=== PATIENT | female | born 1965 | race Caucasian/White ===

== ENCOUNTER → 2019-01-06 | Outpatient (CLI) | payer BC ==
[~2019-01-06] VITALS: Ht 167.6 cm; Wt 118.8 kg
[~2019-01-06] MED LIST: CATHETER FLUSH 10 ML SYR IV PRN; ESTROGEN; NAPR-243 PO; OMEG-160 PO; PHEN37.555; SIMV20TA3 PO; TRM50T PO
[2019-01-06 09:12] VITALS: BP 123/78
[2019-01-06 09:23] VITALS: BP 188/111
--- NOTE | 2019-01-07 08:23 | STRESS TEST ---
DATE OF SERVICE: 01/06/2019 EXERCISE MYOVIEW STRESS TEST REPORT Baseline heart rate is 63. Baseline blood pressure 123/78. Baseline EKG is sinus rhythm with no ischemic changes. In summary, the patient was injected with 10.3 mCi of technetium-99 Myoview and the resting images were obtained. Then, the patient started exercising with a baseline heart rate, blood pressure and EKG mentioned above. The patient was able to exercise for a total of 4 minutes 30 seconds on standard Tima protocol. With peak exercise level, EKG was showing minimal and nondiagnostic changes. Blood pressure was 179/102. During recovery, heart rate and blood pressure returned to baseline. EKG returned to baseline. The resting and stress images were reviewed and compared in the short axis, horizontal long axis, and vertical long axis views. Review of the images showed breast attenuation with mild decrease uptake at the mid to apical anterior wall with mild reversibility. SSS is 5, SDS 5, TID value 1.0. On the gated images, the left ventricle appeared to be in normal size with normal contractility. Calculated ejection fraction 62%. CONCLUSION: 1. Fair exercise tolerance, a total of 4 minutes 30 seconds on standard Tima protocol, total of 6.4 METS, achieving 88% of maximum expected heart rate. 2. Appropriate heart rate with hypertensive response to exercise, returned to baseline during recovery. 3. Nondiagnostic EKG changes with exercise returned to baseline during recovery. 4. Breast attenuation with mild ischemia involving the mid to apical anterior wall. 5. Normal left ventricular size with normal contractility. Calculated ejection fraction 62%. Job ID: [id number] DocumentID: [id number] Dictated Date: 01/07/2019 07:37:33 Development Assistant Date: 01/07/2019 08:22:13 Dictated By: KATHY MADDEN MD
== END ==
LOC: CARD 07:16
PROVIDERS: ATTEND Internal Medicine Cardiovascular Disease
DX: R07.89 Other chest pain (principal); I08.1 Rheumatic disorders of both mitral and tricuspid valves; E66.01 Morbid (severe) obesity due to excess calories; Z68.41 Body mass index [BMI] 40.0-44.9, adult
CPT/HCPCS: 78452; 93017

== ENCOUNTER 2019-01-08 07:46 | Day surgery (SDC) | payer BC ==
[2019-01-08] VITALS (9 sets, daily range): BP systolic 127–167; BP diastolic 75–99
[~2019-01-08] VITALS: Ht 167.6 cm; Wt 117.0 kg
[~2019-01-08 07:46] MED LIST changes: -CATHETER FLUSH 10 ML SYR IV PRN; -OMEG-160 PO; -SIMV20TA3 PO
[2019-01-08] MEDS ORDERED: HEParin (CATH LAB) 2,000 ML IV ONE (07:54)
[2019-01-08] MEDS ORDERED: NS IV 1000 ML 1,000 ML ONE (07:54)
[2019-01-08] MEDS ORDERED: LIDOCAINE 1% INJ 20 ML 20 ML VIAL ONE (07:54)
[2019-01-08] MEDS ORDERED: NS IV 1000 ML 1,000 ML IV SCH ×2 (08:15→12:04)
[2019-01-08] MEDS ORDERED: OMEG-160 PO ×2 (08:23)
[2019-01-08] MEDS ORDERED: SIMV20TA3 PO ×2 (08:23)
[2019-01-08 08:24] LABS: HEMOGLOBIN 11.8 G/DL (11.5-16.0); RED CELL DISTRIBUTION WIDTH 13.8 % (10.0-14.5); WHITE BLOOD COUNT 5.7 10^3/uL (4.3-11.0)
[2019-01-08 08:34] LABS: INR 0.9 (0.8-1.4); PROTHROMBIN TIME PATIENT 12.7 SEC (12.2-14.7)
[2019-01-08 08:41] LABS: ALANINE AMINOTRANSFERASE 19 U/L (0-55); ALBUMIN 4.3 GM/DL (3.2-4.5); ALKALINE PHOSPHATASE 93 U/L (40-136); BILIRUBIN,TOTAL 0.5 MG/DL (0.1-1.0); BUN/CREATININE RATIO 20; CALCIUM 9.1 MG/DL (8.5-10.1); CARBON DIOXIDE 24 MMOL/L (21-32); CHLORIDE 106 MMOL/L (98-107); CHOLESTEROL 153 MG/DL (< 200); CREATININE SERUM 0.92 MG/DL (0.60-1.30); GFR ESTIMATED > 60; GLUCOSE 101 MG/DL (70-105); HDL CHOLESTEROL 50 MG/DL (40-60); POTASSIUM 4.1 MMOL/L (3.6-5.0); SODIUM 140 MMOL/L (135-145); TOTAL PROTEIN 6.8 GM/DL (6.4-8.2); TRIGLYCERIDES 92 MG/DL (<150); VLDL CHOLESTEROL 18 MG/DL (5-40)
--- NOTE | 2019-01-08 08:58 | Diagnostic Imaging Report ---
Indication: Shortness of breath Compared to 03/31/2014. Findings: The lungs are clear. The heart and vessels normal. There is effusion or pneumothorax. Impression: No acute appearing abnormality. Dictated by: Dictated on workstation # [id number]
[2019-01-08] MEDS ORDERED: MIDAZOLAM 5 MG/5 ML (VERSED) VIAL ONE (10:38)
[2019-01-08] MEDS ORDERED: VERAPAMIL 5 MG/2 ML (CALAN) VIAL IV ONE (10:38)
[2019-01-08] MEDS ORDERED: HEParin 1000 UNIT/ML (10ML VIAL) FOR BOLUS ONE (10:38)
[2019-01-08] MEDS ORDERED: NITRO DRIP 25000 MCG/D5W 250 ML IV ONE (10:38)
[2019-01-08] MEDS ORDERED: fentaNYL INJECTION 100 MCG/2 ML AMP ONE (10:38)
--- NOTE | 2019-01-08 12:06 | Discharge Inst-Post CATH ---
Discharge Inst-CATH/EP Post Cardiac Cath/EP D/C Inst Follow Up/Plan appointment with Dr. Henderson's office in 4-6 weeks <b>CARDIAC CATH/EP PROCEDURE DISCHARGE INSTRUCTIONS</b> ACTIVITY * Go Home directly and rest. * Limit activity of the leg (or wrist if it was used) for 7 days including aerobics, swimming, jogging, bicycling, etc. * Restrict stair-climbing for 7 days if possible, if not, climb up with your non-cath leg, then bring together on the same step. * Avoid lifting, pushing, pulling or excessive movement of the affected extremity for 7 days. * Customary sexual activity may be resumed after 2 days-use caution not to use a position that strains or causes pain to the affected extremity. * No driving for 24 hours. * NO SMOKING. * Avoid straining for bowel movements for 7 days. * Gentle walking on level ground is allowed. * Returning to work will depend on the type of procedure and the results. Your doctor will discuss this with you. CALL YOUR DOCTOR FOR ANY OF THE FOLLOWING: *If bleeding from the puncture site occurs- Apply gentle pressure to site with clean cloth and call your doctor or EMS. * If a knot or lump forms under the skin, increases in size, or causes pain. * If bruising appears to be worsening or moving further down your leg instead of disappearing. * Temperature above 101 F. CARE OF YOUR GROIN INCISION; * Bruising or purple discoloration of the skin near the puncture site is common. * You may shower only, no bathtub bathing for 5 days. Be careful to avoid slipping as your leg may feel stiff. * If a closure device was used on your femoral artery, please see the attached guide regarding care of the device and your leg. * Leave dressing on FOR 24 hours. CARE OF YOUR WRIST INCISION; * Bruising or purple discoloration of the skin near the puncture site is common. * You may shower. * DO NOT submerge wrist. * Leave dressing on FOR 24 hours. KATHY HENDERSON MD Jan 08, 2019 12:06
--- NOTE | 2019-01-08 12:11 | Cardiac Cath Report ---
Cardiac Cath Report Physician (s)/Program Proposals Coordinator (s) Physician KATHY MADDEN MD Pre-Procedure Diagnosis Pre-Procedure Diagnosis: coronary artery disease Post-Procedure Note Procedure Start Date: Jan 08, 2019 Name of Procedure: Left heart catheterization Left ventriculogram Findings/Procedure Note PROCEDURE NOTE: 53 years old lady with history of hypertension, hyperlipidemia, had an abnormal stress test, scheduled for cardiac catheterization possible PTCA After explaining the procedure to the patient, all pros and cons were explained, all questions were answered. The patient signed the consent and then she was placed on the cardiac catheterization laboratory. Groin was prepped SL fashion local anesthesia was used. Sheath placed in the right radial artery, multiple catheters were used to access the coronary system without great success, the best catheter was successful is multipurpose 1 catheter, advanced to the left and right carotid system and angiogram was done. Festus catheter was prolapsed in the left ventricular, pressure was measured no left ventricular gram was done. At the end of the procedure the sheath was removed. vascular band was used FINDINGS: Hemodynamics LV 114/6, end-diastolic pressure of 6 Aorta 105/70 mean of 70 ANATOMY: Left Main is free of obstructive disease Left Anterior Descending has mild disease nonobstructive disease Left Circumflex has mild disease nonobstructive disease Right Coronory Artery has mild disease nonobstructive disease CONCLUSION: 1. Mild coronary artery disease nonobstructive disease 2. Normal left ventricular end-diastolic pressure DISCUSSION AND RECOMMENDATION: stress test abnormalities probably due to extracardiac attenuation, no signific ant obstructive disease was noted, medical therapy is recommended Estimated blood loss (mL): 20 ml Contrast Amount: 62 ml Total Radiation Dose: 641 mGy Post-Procedure Diagnosis Post-operative diagnosis: Chest pain Coronary artery disease Hyperlipidemia Family history of heart disease KATHY MADDEN MD Jan 08, 2019 12:11
== END 2019-01-08 15:05 | disposition home or self-care (01) ==
LOC: CATH 07:46 → SDC 12:16 → CATH 15:05
PROVIDERS: ATTEND Internal Medicine Cardiovascular Disease
DX: R07.9 Chest pain, unspecified (principal); I25.10 Atherosclerotic heart disease of native coronary artery without angina pectoris; E78.5 Hyperlipidemia, unspecified; Z82.49 Family history of ischemic heart disease and other diseases of the circulatory system; E66.01 Morbid (severe) obesity due to excess calories; I08.1 Rheumatic disorders of both mitral and tricuspid valves; Z68.41 Body mass index [BMI] 40.0-44.9, adult
CPT/HCPCS: 36415; 71045; 80053; 80061; 85027; 85610; 85730; 87081; 93458